=== PATIENT | male | born 2000 | race Caucasian/White ===

== ENCOUNTER 2025-05-04 09:35 | Emergency (ER) | payer OTHER ==
[2025-05-04 09:46] VITALS: BP 130/72; PULSE 89; RESP 18; TEMP 98.6; BMI 24.4
[2025-05-04] MEDS ORDERED: IBUPROFEN 600 MG TABLET (FP) PO ONE (10:49)
[2025-05-04] MEDS: IBUPROFEN 600 MG TABLET (FP) PO ONE (10:51)
== END 2025-05-04 10:58 | disposition home or self-care (01) ==
LOC: JERFT 09:35 → JER 09:35 → JERFT 10:58
DX: M25.511 Pain in right shoulder (principal); G89.29 Other chronic pain
CPT/HCPCS: 99283-25